=== PATIENT | male | born 1975 | race Caucasian/White ===

== ENCOUNTER 2019-02-07 22:12 | Emergency (ER) | payer OTHER ==
[~2019-02-07] VITALS: Ht 182.9 cm; Wt 106.6 kg
[2019-02-08] MEDS ORDERED: COZAAR100 MG PO (02:54)
[2019-02-08] MEDS ORDERED: SYNTHROID50 MCG PO (02:54)
== END 2019-02-08 03:08 | disposition home or self-care (01) ==
LOC: ER 22:12
DX: I16.0 Hypertensive urgency (principal); I10 Essential (primary) hypertension